=== PATIENT | female | born 1970 | race Hispanic/Latino ===

== ENCOUNTER 2017-08-02 22:55 | Emergency (ER) | payer OTHER ==
[~2017-08-02] VITALS: Ht 162.6 cm; Wt 104.3 kg
[2017-08-02] MEDS ORDERED: NIFEDIPINE 10 MG CAP PO ONE (23:15)
[2017-08-02 23:31] LABS: STREPTOCOCCUS GRP A ANTIGEN NEGATIVE (NEGATIVE)
[2017-08-02 23:32] LABS: INFLUENZAE A&B ANTIGEN (RAPID) NEGATIVE (NEGATIVE)
[2017-08-03 00:56] VITALS: BP 131/90
--- NOTE | 2017-08-03 04:31 | Diagnostic Imaging Report ---
2 views of the chest, PA and lateral Technique: 2 views of the chest Comparison: None Clinical history: Cough DISCUSSION: Heart/mediastinum: Heart size is upper limits of normal. Lungs/pleural spaces: No consolidation or edema. No effusion or pneumothorax. IMPRESSION: No acute abnormality Signed by: Dr Salud Huggins MD on 08/03/2017 12:46 AM
== END 2017-08-03 01:05 | disposition home or self-care (01) ==
LOC: ER 22:55
DX: R05 Cough (principal); R51 Headache; B34.9 Viral infection, unspecified; I10 Essential (primary) hypertension
CPT/HCPCS: 71020; 83518; 87070; 87400; 99283